=== PATIENT | female | born 1960 | race Caucasian/White ===

== ENCOUNTER 2022-05-15 21:45 | Emergency (ER) | payer OTHER, SELFPAY ==
[2022-05-15 22:12] VITALS: BP 177/94; PULSE 87; RESP 20; TEMP 36.8; O2SAT 97; BMI 44.1
--- NOTE | 2022-05-15 22:56 | ED.ARRPALP ---
HPI - Arrhythmia/Palpitations General Chief Complaint: Arrhythmia/Palpitations Stated Complaint: HEART PALPITATIONS Time Seen by Provider: 05/15/22 22:11 Source: patient Mode of arrival: ambulatory Limitations: no limitations History of Present Illness complaint: skipped beats Onset (ago): day(s) Duration: intermittent Severity: mild Associated symptoms: denies other symptoms Related Data Home Medications Medication Instructions Recorded Confirmed magnesium 100 mg capsule 100 mg PO DAILY 05/15/22 05/15/22 phenylephrine HCl 10 mg tablet 10 mg PO Q4-6H PRN 05/15/22 05/15/22 (Nasal Decongestant (phenylephrine)) potassium gluconate 500 mg (83 mg) 500 mg PO DAILY 05/15/22 05/15/22 tablet Allergies Allergy/AdvReac Type Severity Reaction Status Date / Time No Known Drug Allergies Allergy Verified 05/15/22 22:19 Review of Systems Status of ROS: Reports: 10 or more systems reviewed and unremarkable except as noted in History and below PFSH PFSH Medical History Ectopic Environmental allergies GERD (gastroesophageal reflux disease) Hypercholesterolemia Social History Smoking Status: Never smoker Do you use any of these nicotine containing products: None Second hand tobacco smoke exposure: No How often do you have a drink containing alcohol: never AUDIT-C Alcohol total score: 0 Non-prescribed substance use: denies use Exam Const: Vital Signs, click to edit/add: Vital Signs - 24 hr 05/15/22 22:12 Temperature 98.2 F Pulse Rate [Left P ulse Oximeter] 87 Respiratory Rate 20 Blood Pressure [Le ft Upper Arm] 177/94 H Pulse Oximetry 97 Documenting provider has reviewed patient's vital signs: yes Common normals: no apparent distress, oriented x3, no limitations, healthy appearing and alert General appearance: cooperative, comfortable, well kempt and well developed Nutritional appearance: obese Orientation/consciousness: Yes awake HENMT: Common normals: normocephalic, head/scalp atraumatic, hearing grossly normal bilaterally, moist oral mucous membranes and oropharynx normal Head and scalp: normocephalic and atraumatic Eye: Common normals: PERRL, EOMs intact bilaterally and conjunctivae normal General eye: normal appearance of both eyes Conjunctiva: conjunctiva(e) normal Pupil: PERRL Neck & C-Spine: Common normals: full ROM, no lymphadenopathy and supple Chest: Common normals: inspection of chest normal and palpation of chest normal Resp: Common normals: normal respiratory effort and clear to auscultation bilaterally Auscultation: clear to auscultation bilaterally Cardio: Common normals: regular rate, regular rhythm, S1 normal heart sound, S2 normal heart sound, no gallops, no clicks, no murmurs and no rub Rate: regular rate Rhythm: regular rhythm Heart sounds: S1 normal and S2 normal GI: Common normals: Normal to inspection, nondistended, normoactive bowel sounds present, soft to palpation and non-tender Palpation: soft Extremity: Common normals: normal to inspection (obese), normal capillary refill and no pedal edema Neuro: Common normals: oriented x3 Sensorium/orientation: awake and alert Psych: Common normals: mental status grossly normal, thought process normal, cooperative, affect normal and speech normal Appearance: well kempt Speech: normal speech Thought process: normal thought process Skin: Common normals: no rashes or lesions noted General skin exam: no rashes or lesions noted Course Course Hospital Course: While on the sled maker, patient was noted to have frequent PACs. No other rhythm abnormality was noted. EKG was done and showed normal sinus rhythm. Labs were unremarkable. When patient was talking she did not feel her PACs however when she was quiet that is when she felt them. Vital Signs Vital signs: Initial Vital Signs Temperature 98.2 F 05/15/22 22:12 Temperature Source Temporal Artery Scan 05/15/22 22:12 Pulse Rate 87 05/15/22 22:12 Pulse Rhythm 05/15/22 22:12 Respiratory Rate 20 05/15/22 22:12 Blood Pressure 177/94 H 05/15/22 22:12 Blood Pressure Mean 121 05/15/22 22:12 Blood Pressure Position Semi-Fowlers 05/15/22 22:12 Pulse Oximetry 97 05/15/22 22:12 Oxygen Delivery Method 05/15/22 22:12 Vital Signs Temperature 98.2 F 05/15/22 22:12 Pulse Rate 87 05/15/22 22:12 Respiratory Rate 20 05/15/22 22:12 Blood Pressure 177/94 H 05/15/22 22:12 Pulse Oximetry 97 05/15/22 22:12 Temperature 98.2 F 05/15/22 22:12 Pulse Rate 87 05/15/22 22:12 Respiratory Rate 20 05/15/22 22:12 Blood Pressure 177/94 H 05/15/22 22:12 Pulse Oximetry 97 05/15/22 22:12 MDM - Arrhythmia/Palpitations MDM Narrative Medical decision making narrative: 61-year-old female with PACs. We discussed the benign nature of this rhythm. Recommend she follow up with her primary care provider if she feels like the frequency is increasing. She may need a heart monitor to assess the PAC burden. Patient reassured. Medical Records Attestation: I reviewed the patient's medical records. Lab Data Attestation: I reviewed the patient's lab results. Labs: Lab Results 05/15/22 05/15/22 05/15/22 Range/Units 22:43 22:57 22:57 WBC 5.78 (4.50-11.00) K/uL RBC 4.53 (4.00-5.20) m/uL Hgb 13.8 (12.0-16.0) gm/dL Hct 41.7 (33.0-51.0) % MCV 92 (80-100) fL MCH 31 (26-34) pg MCHC 33 (32-36) gm/dL RDW Coeff of Hank 13.3 (11.5-15.5) % Plt Count 243 (140-440) K/uL Neut % (Auto) 64.3 (42.0-72.0) % Lymph % (Auto) 25.6 (20-44) % [place] % (Auto) 8.1 (0.0-11.0) % Eos % (Auto) 1.2 (0.0-7.0) % Baso % (Auto) 0.3 (0.0-3.0) % Neut # (Auto) 3.71 (1.7-7.0) K/uL Lymph # (Auto) 1.48 (0.90-2.90) K/uL [place] # (Auto) 0.50 (0.00-0.90) K/UL Eos # (Auto) 0.07 (0.00-0.50) K/uL Baso # (Auto) 0.02 (0.00-0.30) K/uL Abs Immat Gran (auto) 0.03 (0.00-0.30) K/uL Sodium 138 (135-149) mmol/L Potassium 4.2 (3.6-5.1) mmol/L Chloride 106 (96-114) mmol/L Carbon Dioxide 27 (20-32) mmol/L BUN 17 (7-30) mg/dL Creatinine 0.7 (0.5-1.5) mg/dL Estimated Creat Clear 44.02 Glucose 112 (60-115) mg/dL Calcium 9.6 (8.4-10.6) mg/dL POC Troponin I 0.00 L (0.01-0.04) ng/ml ECG Data Attestation: I personally reviewed and interpreted this ECG as follows: (Normal sinus rhythm) Discharge Plan Discharge Clinical Impression: Palpitations, Atrial contractions, premature Patient Disposition: Home, Self-Care Condition: Stable Additional Instructions: Follow-up with primary care provider and consider getting a heart monitor for 24 hours to see how often these beats are occurring. Return to the ER if you develop any chest pain, dizziness, fever or vomiting. Prescriptions: No Action phenylephrine HCl [Nasal Decongestant (PE)] 10 mg tablet 10 mg PO Q4-6H PRN0RF potassium gluconate 500 mg (83 mg) tablet 500 mg PO DAILY 0RF magnesium 100 mg capsule 100 mg PO DAILY 0RF Follow Up/Referrals: Zari Medina DO [Primary Care Provider] - Stand Alone Forms: [facility] Inst[facility]
[2022-05-15 23:27] LABS: Basophils Absolute Auto 0.02 K/uL (0.00-0.30); Basophils Percent Auto 0.3 % (0.0-3.0); Eosinophils Absolute Auto 0.07 K/uL (0.00-0.50); Eosinophils Percent Auto 1.2 % (0.0-7.0); Hematocrit 41.7 % (33.0-51.0); Hemoglobin* 13.8 gm/dL (12.0-16.0); Immature Granulocytes Abs Auto 0.03 K/uL (0.00-0.30); Lymphocytes Absolute Auto 1.48 K/uL (0.90-2.90); Lymphocytes Percent Auto 25.6 % (20-44); Mean Corpuscular HGB Conc 33 gm/dL (32-36); Mean Corpuscular Hemoglobin 31 pg (26-34); Mean Corpuscular Volume 92 fL (80-100); Monocytes Percent Auto 8.1 % (0.0-11.0); Neutrophils Absolute Auto 3.71 K/uL (1.7-7.0); Neutrophils Percent Auto 64.3 % (42.0-72.0); Platelet Count* 243 K/uL (140-440); RDW Coefficient of Variation % 13.3 % (11.5-15.5); Red Blood Count 4.53 m/uL (4.00-5.20); White Blood Count* 5.78 K/uL (4.50-11.00)
[2022-05-15 23:29] LABS: Slide Review Reflex No
[2022-05-15 23:31] LABS: Chloride* 106 mmol/L (96-114); Potassium* 4.2 mmol/L (3.6-5.1); Sodium* 138 mmol/L (135-149)
[2022-05-15 23:33] LABS: Creatinine* 0.7 mg/dL (0.5-1.5); Est. Creatinine Clearance* 44.02; Estimated Glomerular Filt Rate 97.72
[2022-05-15 23:34] LABS: Blood Urea Nitrogen* 17 mg/dL (7-30); Calcium* 9.6 mg/dL (8.4-10.6); Carbon Dioxide* 27 mmol/L (20-32); Glucose* 112 mg/dL (60-115)
[2022-05-15 23:57] VITALS: BP 161/82; RESP 18; O2SAT 98
== END 2022-05-16 00:37 | disposition home or self-care (01) ==
PROVIDERS: Emergency Provider Family Medicine; PCP Family Medicine
DX: I49.1 Atrial premature depolarization (principal); R00.2 Palpitations
CPT/HCPCS: 36415; 80048; 84443; 84484; 85025; 93005; 99283; 99284; 99285

== ENCOUNTER 2022-10-14 07:30 | Outpatient (RCR) | payer MEDICAID, OTHER, SELFPAY | END 2022-12-30 11:56 | disposition home or self-care (01) | PROVIDERS: PCP Family Medicine; Visit Provider Family Medicine | DX: M25.512 Pain in left shoulder (principal); Z51.89 Encounter for other specified aftercare | CPT/HCPCS: 97110; 97140; 97162 ==